=== PATIENT | male | born 1990 | race Caucasian/White ===

== ENCOUNTER 2019-07-18 16:28 | Emergency (ER) | payer BC, SELFPAY ==
[2019-07-18 16:39] VITALS: BP 135/90; PULSE 108; RESP 18; TEMP 36.7; O2SAT 99
--- NOTE | 2019-07-18 17:02 | ED.WOUNDLAC ---
HPI - Wound/Laceration General Chief Complaint: Wound/Laceration Stated Complaint: Laceration Right hand Time Seen by Provider: 07/18/19 17:02 Source: patient and RN notes reviewed History of Present Illness HPI narrative: Patient is a 28-year-old male that presents the urgent care with complaints of a laceration to the right index finger knuckle. Patient states that he was cleaning a fish tank and cut it on a broken piece of glass. Patient states he is up-to-date on his tetanus. No other acute complaints or injuries. No acute distress noted. Patient read the plan of care. Related Data Home Medications Medication Instructions Recorded Confirmed No Home Medications 07/18/19 07/18/19 Allergies Allergy/AdvReac Type Severity Reaction Status Date / Time No Known Allergies Allergy Verified 09/13/12 11:29 Review of Systems Review of Systems: Narrative: CONSTITUTIONAL: Denies fever, chills, or sweats. EYES: Denies visual changes, redness, or discharge. ENT: Denies rhinorrhea, congestion, sore throat, or otalgia. CARDIOVASCULAR: Denies chest pain, palpitations, or edema. RESPIRATORY: Denies cough or dyspnea. GASTROINTESTINAL: Denies abdominal pain, nausea, vomiting, or diarrhea. GENITOURINARY: Denies dysuria or hematuria. SKIN: Reports of a laceration to the right index knuckle MUSCULOSKELETAL: Denies back pain, joint pain, or myalgia. NEUROLOGIC: Denies headache, numbness, or weakness. All other systems reviewed are negative, except as documented in HPI. PMFSH Comments At the time of my signature, I reviewed and agree with the nursing past medical, surgical, social, and family history. There is no relevant family history pertinent to the patient complaint. Exam Narrative: Exam Narrative: GENERAL: This is a well-nourished, well-developed patient, in no apparent distress. HEAD: normocephalic, atraumatic. EYES: PERRL. Sclera clear/white. Vision is grossly intact. EARS: External ears normal NOSE: External nose normal with no obvious nasal discharge THROAT: Mucous membranes moist NECK: Neck supple CARDIOVASCULAR: Regular rate and rhythm without murmurs, gallops, or rubs. RESPIRATORY: Clear to auscultation. Breath sounds equal bilaterally. No wheezes, rales, or rhonchi. SKIN: 1 cm flap circular laceration to the right first knuckle of the index finger. Warm, intact with no suspicious lesions or rash, good texture and turgor. NEURO: awake, alert, and oriented to person, place and time. There were no obvious focal neurologic abnormalities. EXTREMITIES: No clubbing, cyanosis, or edema. Right upper extremity capillary refill less than 2 seconds with normal range of motion to all right fingers. Positive strong radial pulse. Course Vital Signs Vital signs: Vital Signs Temperature 98.1 F 07/18/19 16:39 Pulse Rate 108 H 07/18/19 16:39 Respiratory Rate 18 07/18/19 16:39 Blood Pressure 135/90 07/18/19 16:39 Pulse Oximetry 99 07/18/19 16:39 Temperature 98.1 F 07/18/19 16:39 Pulse Rate 108 H 07/18/19 16:39 Respiratory Rate 18 07/18/19 16:39 Blood Pressure 135/90 07/18/19 16:39 Pulse Oximetry 99 07/18/19 16:39 Reviewed Procedures Laceration Laceration 1: Description: flap Depth: simple, single layer Pre-repair: irrigated ====== Skin Level ====== Skin layer closed with: steri strips and other (ethilon) Size (cm): 5-0 ====== Subcutaneous Layer ====== ====== Muscle Layer ====== ====== Tendon Layer ====== Dressin-0 Ethilon suture placed to right index finger first knuckle to see flap 1 cm laceration. Patient tolerated well without anesthetic. Wound cleansed and irrigated with [employer] and normal saline. Steri-Strips applied. Metal splint given for suture protection. Patient tolerated well. Right index finger range of motion within normal limits with capillary refill less than 2 seconds pre-and post procedure. SHAHZAD - W
--- NOTE | 2019-07-18 17:11 | PC.NURSE ---
lac. set up at bedside.
== END 2019-07-18 17:47 | disposition home or self-care (01) ==
PROVIDERS: Emergency Provider Nurse Practitioner Family
DX: S61.210A Laceration without foreign body of right index finger without damage to nail, initial encounter (principal); W25.XXXA Contact with sharp glass, initial encounter
CPT/HCPCS: 12001; 99202; G0463

== ENCOUNTER 2023-11-29 09:28 | Emergency (ER) | payer BC, SELFPAY ==
[2023-11-29 09:17] VITALS: BP 136/92; PULSE 90; RESP 16; TEMP 36.8; O2SAT 98
--- NOTE | 2023-11-29 10:24 | ED.EYEPROB ---
HPI - Eye Problem General Chief complaint: Eye Problems Stated complaint: EYE INJURY Time Seen by Provider: 11/29/23 09:38 Source: patient Mode of arrival: ambulatory Limitations: no limitations History of Present Illness HPI Narrative: This is a 32-year-old male who presents to the ED via EMS for chief complaint of possible allergic reaction. Patient states that he was driving down the road when a bug in his truck perhaps flew into his eye. States that he rubbed his eye and started to have a reaction. States that his eyes started to swell up and that he had blurry vision. Reports that he started to hyperventilate and had some bilateral extremity tingling. states that since EMS brought him to the ED he is feeling overall improved. Denies any further swelling, rash. States that his vision is normal again. Denies any eye pain or irritation at this time. Related Data Home Medications Medication Instructions Recorded Confirmed No Home Medications 07/18/19 07/18/19 Allergies Allergy/AdvReac Type Severity Reaction Status Date / Time No Known Allergies Allergy Verified 11/29/23 09:36 Review of Systems Review of Systems: All systems as dictated in HPI Exam Narrative: GENERAL: Well-appearing, well-nourished, and in no acute distress. HEAD: Normocephalic, atraumatic. EYES: PERRLA and EOMI. Wood's lamp exam is benign. No corneal abrasion. No Ruby sign. ENT: Nares clear, no rhinorrhea or epistaxis. Mucous membranes moist. Oropharynx without tonsillar hypertrophy exudate or other lesions. NECK: Supple. No adenopathy or masses. CHEST: No respiratory distress. Clear to auscultation. No wheezes rales or rhonchi HEART: Regular rate and rhythm. No murmur heard. Normal peripheral pulses. ABDOMEN: Soft, nontender, nondistended, normal active bowel sounds. MSK: Normal range of motion. No edema. SKIN: Warm, dry, no rash. NEURO: Alert and oriented x4. No focal deficits. PSYCH: Normal mood and affect. Course Vital Signs Vital signs: Vital Signs Temperature 98.3 F 11/29/23 09:17 Pulse Rate 90 11/29/23 09:17 Respiratory Rate 16 11/29/23 09:17 Blood Pressure 136/92 H 11/29/23 09:17 Pulse Oximetry 98 11/29/23 09:17 Temperature 98.3 F 11/29/23 09:17 Pulse Rate 90 11/29/23 09:17 Respiratory Rate 16 11/29/23 09:17 Blood Pressure 136/92 H 11/29/23 09:17 Pulse Oximetry 98 11/29/23 09:17 MDM - Eye Problem MDM Narrative Medical decision making narrative: This is a 32-year-old male who presents to the ED for chief complaint of possible allergic reaction. Had a bug fly in his eye today. Asymptomatic on arrival. Vitals are normal exam is benign. No evidence of severe allergic reaction. Wood's lamp exam of the eye is normal. No abrasion or foreign body. Pt will be discharged in stable condition. Return precautions given and supportive measures discussed. Pt is understanding and agreeable with plan for discharge and follow-up with PCP. Discharge Plan Discharge Clinical Impression: Encounter for medical screening examination Patient Disposition: Home, Self-Care Condition: Stable Instructions: Antibiotic Form Additional Instructions: your exam today is reassuring overall. If you have any further allergic symptoms, take Benadryl 25 mg. If you have any new or worsening symptoms please return to the ER for further evaluation. Prescriptions: No Action No Home Medications Follow-up/Referrals: UNKNOWN,DOCTOR [Primary Care Provider] - Time of Disposition: 10:26
== END 2023-11-29 10:57 | disposition home or self-care (01) ==
PROVIDERS: Emergency Provider Physician Assistant
DX: S05.90XA Unspecified injury of unspecified eye and orbit, initial encounter (principal); X58.XXXA Exposure to other specified factors, initial encounter
CPT/HCPCS: 99283